=== PATIENT | male | born 1980 | race Caucasian/White ===

== ENCOUNTER 2023-02-17 14:59 | Emergency (ER) | payer SELFPAY ==
[~2023-02-17] VITALS: Ht 177.8 cm; Wt 113.4 kg
[2023-02-18 07:06] LABS: HEPATITIS B SURFACE AG Negative (Negative)
== END 2023-02-17 16:41 | disposition home or self-care (01) ==
LOC: ED 14:59
PROVIDERS: Nurse Practitioner Family
DX: Z20.5 Contact with and (suspected) exposure to viral hepatitis (principal)

== ENCOUNTER → 2023-06-15 | Outpatient (CLI) | payer OTHER | END | disposition home or self-care (01) | LOC: RAD 09:21 | PROVIDERS: ATTEND Nurse Practitioner Family | DX: S22.088A Other fracture of T11-T12 vertebra, initial encounter for closed fracture (principal); I10 Essential (primary) hypertension; M48.07 Spinal stenosis, lumbosacral region; M51.37 Other intervertebral disc degeneration, lumbosacral region; X58.XXXA Exposure to other specified factors, initial encounter; Y93.89 Activity, other specified; Y92.89 Other specified places as the place of occurrence of the external cause; Y99.8 Other external cause status ==